=== PATIENT | male | born 1995 | race Caucasian/White ===

== ENCOUNTER 2016-11-09 13:32 | Emergency (ER) | payer BC ==
[2016-11-09 15:33] VITALS: BP 125/74
--- NOTE | 2016-11-09 15:43 | UC ---
General HPI - HPI Summary HPI Summary: here for evaluation; advised to come in to discuss bodily fluid transmission. 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 Evaluating an intoxicated handcuffed student on a stretcher who began spitting--got exposure on face, thinks also in eye. Occurred on 11/08 at 05:30 am. Does not know history of individual. Has never been HIV tested. OSHA report filed No symptoms. Cleansed face within an hour. - History of Current Complaint Chief Complaint: UCEye Stated Complaint: SPIT IN EYE (EMT) Time Seen by Provider: 11/09/16 15:36 Hx Obtained From: Patient Onset/Duration: Sudden Onset - Allergy/Home Medications Allergies/Adverse Reactions: Allergies Allergy/AdvReac Type Severity Reaction Status Date / Time cold induced urticaria Allergy Hives Uncoded 11/09/16 15:35 PMH/Surg Hx/FS Hx/Imm Hx Previously Healthy: Yes Respiratory History Of: Reports: Asthma - EXERCISED INDUCED - Surgical History Surgical History: Yes Surgery Procedure, Year, and Place: HERNIA REPAIR - Family History Known Family History: Negative: Diabetes, Other - GOUT - Social History Alcohol Use: Occasionally Substance Use Type: None Smoking Status (MU): Current Some Day Smoker Type: Cigars Amount Used/How Often: 1 Q 2 MOS Length of Time of Smoking/Using Tobacco: 2 YRS. Review of Systems Constitutional: Negative Skin: Negative Eyes: Negative ENT: Negative Respiratory: Negative Cardiovascular: Negative Gastrointestinal: Negative Genitourinary: Negative Motor: Negative Neurovascular: Negative Musculoskeletal: Negative Neurological: Negative Psychological: Negative All Other Systems Reviewed And Are Negative: Yes Physical Exam Triage Information Reviewed: Yes Appearance: Well-Appearing Vital Signs: Initial Vital Signs Temp 97.8 F 11/09/16 15:25 Pulse 76 11/09/16 15:25 Resp 18 11/09/16 15:25 BP 125/74 11/09/16 15:25 Eyes: Positive: Conjunctiva Clear ENT Exam: Normal Neck exam: Normal Respiratory: Positive: Lungs clear Cardiovascular: Positive: RRR, No Murmur Neurological Exam: Normal Neurological: Positive: Alert Psychological Exam: Normal Skin Exam: Normal Course/Dx - Course Course Of Treatment: Will do baseline HIV status with repeat testing in 3 and 6 months due to low risk body fluid exposure - Differential Dx - Multi-Symptom Provider Diagnoses: exposure to body fluids, low risk possibility of HIV exposure Discharge - Discharge Plan Condition: Good Disposition: HOME Patient Education Materials: Postexposure Prophylaxis (ED) Additional Instructions: As discussed, the exposure to body fluids which you had was a very low risk exposure for HIV transmission. You are electing to have baseline HIV testing, and will repeat testing in 3 and 6 months. As discussed, ensure that you use condoms to protect your partner until HIV status is confirmed.
== END 2016-11-09 16:14 | disposition home or self-care (01) ==
LOC: UCCORT 13:32
DX: Z77.21 Contact with and (suspected) exposure to potentially hazardous body fluids (principal); Z11.4 Encounter for screening for human immunodeficiency virus [HIV]; Z72.0 Tobacco use
CPT/HCPCS: 36415; 86703; 99211; G0463